=== PATIENT | male | born 1955 | race Caucasian/White ===

== ENCOUNTER 2022-03-01 07:40 | Emergency (ER) | payer MEDICARE, BC ==
[2022-03-01] MEDS ORDERED: Sodium Chloride 0.9% 10 ML Syringe FLUSH PRN (08:27)
[2022-03-01] MEDS ORDERED: Ketorolac 30 MG/ML SDV IVPUSH ONE (08:27)
[2022-03-01] MEDS ORDERED: Ondansetron 4 MG/2 ML SDV IVPUSH ONE (08:27)
[2022-03-01] MEDS ORDERED: Sodium Chloride 0.9% 1,000 ML IV SCH (08:30)
[2022-03-01 10:30] VITALS: BP 126/76; PULSE 87
== END 2022-03-01 10:15 | disposition home or self-care (01) ==
LOC: JD.ED 07:40
DX: R10.84 Generalized abdominal pain (principal); Z79.899 Other long term (current) drug therapy
CPT/HCPCS: 36415; 74019; 80053; 85025; 96361; 96374; 96375; 99284; J1885; J2405; J3490; J7030

== ENCOUNTER 2022-11-04 07:51 | Day surgery (SDC) | payer MEDICARE, BC ==
[~2022-11-04 07:51] MED LIST: Lactated Ringers 1,000 ML IV SCH; Sodium Chloride 0.9% 10 ML Syringe FLUSH PRN; Sodium Chloride 0.9% 10 ML Syringe FLUSH SCH
[2022-11-04] MEDS ORDERED: Midazolam 1 MG/ML 2 ML SDV ONE (09:12)
[2022-11-04] MEDS ORDERED: fentaNYL 100 MCG/2 ML SDV ONE (09:12)
[2022-11-04] MEDS ORDERED: Lactated Ringers 1,000 ML ONE (09:12)
[2022-11-04] MEDS ORDERED: Propofol 200 MG/20 ML SDV ONE (09:12)
[2022-11-04] MEDS ORDERED: Ondansetron 4 MG/2 ML SDV IVPUSH PRN (10:27)
[2022-11-04 11:46] VITALS: BP 98/68; PULSE 72
== END 2022-11-04 11:40 | disposition home or self-care (01) ==
LOC: JD.SDS 07:51
PROVIDERS: ATTEND Surgery
DX: Z12.11 Encounter for screening for malignant neoplasm of colon (principal); K29.50 Unspecified chronic gastritis without bleeding; K21.9 Gastro-esophageal reflux disease without esophagitis; K44.9 Diaphragmatic hernia without obstruction or gangrene; K57.30 Diverticulosis of large intestine without perforation or abscess without bleeding; K63.89 Other specified diseases of intestine; R09.82 Postnasal drip; Z79.899 Other long term (current) drug therapy; Z82.3 Family history of stroke; Z82.49 Family history of ischemic heart disease and other diseases of the circulatory system
CPT/HCPCS: 43239; G0121; J2250; J2704; J3010; J7120; 00813